=== PATIENT | female | born 1965 | race Caucasian/White ===

== ENCOUNTER 2017-01-29 19:15 | Emergency (ER) | payer SELFPAY ==
[~2017-01-29 19:15] MED LIST: ATORVASTATIN CA40 M1 PO; CEPHALEXIN500 M2 PO; CYCLOBENZAPRINE5 M1 PO; DOXEPIN HCL10 M1 PO; GLUCOPHAGE500 M3 PO; HYDROCODON-ACE1 EA17 PO; KEFLEX500 M4 PO; LEVOTHYROXINE112 MC3 PO; METOPROLOL SUCC50 M1 PO; MULTIVITAMINS1 EAC6 PO; NORCO 5-325 TA1 EACH PO; NORCO 5/3251 TAB PO; NORCO 7.5-3251 EACH PO; PREDNISONE20 M1 PO; PRILOSEC OTC20 M1 PO; VALSARTAN-HCTZ1 EA12 PO; VENTOLIN HFA18 G2 PO; VITAMIN D5000 UNI1 PO; ZITHROMAX250 M1 PO; [UNRECOGNIZED DRUG - OTHER]
[2017-01-29] MEDS ORDERED: ASPIRIN81 M1 PO (21:03)
[2017-01-29] MEDS ORDERED: NEURONTIN300 M1 PO (21:04)
[2017-01-29] MEDS ORDERED: CYCLOBENZAPRINE5 M1 PO (21:22)
[2017-01-29] MEDS ORDERED: NORCO 5-325 TA1 EACH PO (21:22)
[2017-04-05] MEDS ORDERED: ZOFRAN ODT4 MG PO (12:01)
[2017-07-16] MEDS ORDERED: PRENATAL-U CAPS1 CAP PO (10:04)
[2017-07-16] MEDS ORDERED: CLEOCIN HCL300 M1 PO (10:51)
[2017-07-16] MEDS ORDERED: NORCO 5-325 TA1 EACH PO (10:52)
== END 2017-01-29 21:29 ==
LOC: EDMED 19:15
DX: M54.31 Sciatica, right side (principal); I10 Essential (primary) hypertension; Z98.890 Other specified postprocedural states; Z79.82 Long term (current) use of aspirin; Z79.899 Other long term (current) drug therapy

== ENCOUNTER 2017-03-17 21:36 | Emergency (ER) | payer OTHER ==
[~2017-03-17 21:36] MED LIST changes: +ASPIRIN81 M1 PO; +NEURONTIN300 M1 PO
[2017-04-05] MEDS ORDERED: ZOFRAN ODT4 MG PO (12:01)
[2017-07-16] MEDS ORDERED: PRENATAL-U CAPS1 CAP PO (10:04)
[2017-07-16] MEDS ORDERED: CLEOCIN HCL300 M1 PO (10:51)
[2017-07-16] MEDS ORDERED: NORCO 5-325 TA1 EACH PO (10:52)
== END 2017-03-17 23:36 ==
LOC: EDMED 21:36
DX: K61.1 Rectal abscess (principal); E11.9 Type 2 diabetes mellitus without complications; I10 Essential (primary) hypertension; E03.9 Hypothyroidism, unspecified; F17.210 Nicotine dependence, cigarettes, uncomplicated
CPT/HCPCS: J1885

== ENCOUNTER 2017-07-21 18:11 | Emergency (ER) | payer SELFPAY ==
[~2017-07-21] VITALS: Ht 162.6 cm; Wt 86.2 kg
[~2017-07-21 18:11] MED LIST changes: +CLEOCIN HCL300 M1 PO; +PRENATAL-U CAPS1 CAP PO; +ZOFRAN ODT4 MG PO
[2017-07-21 19:47] LABS: BASO % 0.3 % (0-2); EOS % 2.2 % (0-7); EOSINOPHIL ABSOLUTE COUNT 0.3 tho/cmm (0.0-0.7); HCT-HEMATOCRIT 43.8 % (34.0-49.0); HGB-HEMOGLOBIN 15.4 gm/dl (12.0-15.5); IMMATURE GRANULOCYTES ABSOLUTE 0.03 tho/cmm (0-0.03); IMMATURE GRANULOCYTES PERCENT 0.3 % (0-0.3); LYMPH % 23.2 % (20-45); LYMPH ABSOLUTE COUNT 2.6 tho/cmm (0.8-4.5); MCH (MEAN CORPUSCULAR HGB) 30.4 pg (28.0-32.0); MCHC MEAN CORPUSCULAR HGB CONC 35.2 % (32.0-36.0); MCV (MEAN CELL VOLUME) 86.6 fl (82.0-96.0); MEAN PLATELET VOLUME 10.3 cmc (9.4-12.4); MONO % 7.2 % (0-12); MONOCYTE ABSOLUTE COUNT 0.8 tho/cmm (0.0-1.2); NEUTROPHIL ABSOLUTE COUNT 7.6 tho/cmm (1.6-8.0); NEUTROPHIL-AUTOMATED 7.6 tho/cmm (1.6-8.0); NEUTROPHILS % 66.8 % (40-80); PLATELET COUNT 252 tho/cmm (150-450); RED BLOOD COUNT 5.06 mil/cmm (4.00-5.20); RED CELL DISTRIBUTION WIDTH 14.2 % (12.4-16.4); WHITE BLOOD COUNT 11.3 tho/cmm (4.0-10.0)
[2017-07-21 20:07] LABS: ALBUMIN 3.7 g/dl (3.5-5.0); ALKALINE PHOSPHATASE 68 U/L (33-138); ALT/SGPT 24 U/L (12-78); ANION GAP 12 mmol/L (0-20); AST/SGOT 13 U/L (10-40); BILIRUBIN,TOTAL 0.3 mg/dl (0-1.5); BLOOD UREA NITROGEN 19 mg/dl (6-24); CALCIUM 9.2 mg/dl (8.5-10.5); CARBON DIOXIDE-VENOUS 27 mmol/L (22-32); CHLORIDE 106 mmol/l (96-110); CREATININE 0.75 mg/dl (0.50-1.10); GLUCOSE 115 mg/dL (70-110); LIPASE 287 U/L (73-393); POTASSIUM 3.2 mmol/L (3.7-5.1); SODIUM 142 mmol/L (135-145); eGFR VALUE FOR BLACK >90 mL/Min
== END 2017-07-21 20:19 ==
LOC: EDMED 18:11
PROVIDERS: Emergency Medicine
DX: R10.9 Unspecified abdominal pain (principal); R11.0 Nausea; I10 Essential (primary) hypertension; E11.9 Type 2 diabetes mellitus without complications; E78.5 Hyperlipidemia, unspecified; F17.200 Nicotine dependence, unspecified, uncomplicated; Z88.8 Allergy status to other drugs, medicaments and biological substances